=== PATIENT | male | born 1960 ===

== ENCOUNTER 2018-01-27 06:10 | Day surgery (SDC) | payer OTHER ==
[~2018-01-27 06:10] MED LIST: ASA81 MG PO; BACLOFEN20 MG PO; FIORINAL-COD 31 EACH PO; KEPPRA500 MG PO; MAVIK PO; NEURONTIN300 MG PO; SINGULAIR10 MG PO; STALEVO 100 TA1 EACH PO; ZYRTEC10 MG PO
== END 2018-01-27 16:45 | disposition home or self-care (01) ==
LOC: CIR.AMB 06:10
DX: M65.841 Other synovitis and tenosynovitis, right hand (principal)

== ENCOUNTER 2018-04-14 05:10 | Day surgery (SDC) | payer OTHER ==
[~2018-04-14 05:10] MED LIST changes: +STALEVO 75 TAB1 EACH PO
== END 2018-04-14 10:35 | disposition home or self-care (01) ==
LOC: CIR.AMB 05:10
DX: M65.842 Other synovitis and tenosynovitis, left hand (principal)